=== PATIENT | female | born 1960 | race Caucasian/White ===

== ENCOUNTER 2023-05-31 08:14 | Day surgery (SDC) | payer OTHER ==
[~2023-05-31] VITALS: Ht 157.5 cm; Wt 81.8 kg
[~2023-05-31 08:14] MED LIST: GABA-1181 PO; SODIUM CHLORIDE 0.9% 1,000 ML IV ONE; SODIUM CHLORIDE 0.9% 1,000 ML ONE
[2023-05-31] MEDS ORDERED: GLYCOPYRROLATE 0.2 MG/ML VIAL IM ONE (08:15)
[2023-05-31] MEDS ORDERED: PROPOFOL 1% 20 ML VIAL IVP ONE (08:15)
[2023-05-31] MEDS ORDERED: LIDOCAINE/PF 2% 5 ML SYRINGE IVP ONE (08:15)
[2023-05-31] MEDS ORDERED: OXYGEN THERAPY IH SCH (10:45)
== END 2023-05-31 11:35 | disposition home or self-care (01) ==
LOC: SURGERY 08:14
PROVIDERS: ATTEND Specialist
DX: K57.30 Diverticulosis of large intestine without perforation or abscess without bleeding (principal); K64.8 Other hemorrhoids; K62.89 Other specified diseases of anus and rectum; Z80.0 Family history of malignant neoplasm of digestive organs; Z90.49 Acquired absence of other specified parts of digestive tract; Z98.890 Other specified postprocedural states; I10 Essential (primary) hypertension; Z98.84 Bariatric surgery status; Z87.891 Personal history of nicotine dependence
CPT/HCPCS: 45380; 88305; C1769; J2704; J3490 ×2; J7030